=== PATIENT | male | born 1950 | race African-American/Black ===

== ENCOUNTER 2018-03-01 10:26 | Day surgery (SDC) | payer MEDICARE, MEDICAID ==
[~2018-03-01] VITALS: Ht 175.3 cm; Wt 129.3 kg
[~2018-03-01 10:26] MED LIST: AMLO10TA80; ASPRIN; CLON0.2T; FURO40TA5; GABA-529; INSLAN; INSU100V28; LEVVL; LISI-604; METF500T; METO-385; PRAV40TA58; TRAM50TA94
[2018-03-01] MEDS ORDERED: GABA800T97 PO (12:06)
[2018-03-01] MEDS ORDERED: SITA100T11 PO (12:15)
[2018-03-01] MEDS ORDERED: ASPI-986 PO (12:15)
[2018-03-01] MEDS ORDERED: TAMS0.4C31 PO (12:15)
[2018-03-01] MEDS ORDERED: INSU100I13 SQ (12:15)
[2018-03-01] MEDS ORDERED: NITROGLYCERIN 50MCG/ML 10ML VIAL (CATH LAB) IV ONE (12:24)
[2018-03-01] MEDS ORDERED: NICARDIPINE 100MCG/ML 10ML VIAL (CATH LAB) IV ONE (12:24)
[2018-03-01] MEDS ORDERED: HEPARIN SODIUM 1,000 UNIT/1ML VIAL IV ONE (12:24)
[2018-03-01] MEDS ORDERED: IODIXANOL 320MG/ML 100 ML BOTTLE IV ONE (12:39)
[2018-03-01] MEDS ORDERED: LIDOCAINE HCL/PF 1% 10 MG/ML 5ML VIAL ONE (12:39)
[2018-03-01] MEDS ORDERED: MIDAZOLAM HCL 2 MG/2 ML VIAL ONE (13:05)
[2018-03-01] MEDS ORDERED: FENTANYL CITRATE/PF 50MCG/ML 2ML VIAL ONE (13:06)
[2018-03-01] MEDS ORDERED: ONDANSETRON HCL 4MG/2ML VIAL IV PRN (14:30)
== END 2018-03-01 19:15 | disposition home or self-care (01) ==
LOC: CCL 10:26
PROVIDERS: ATTEND Specialist
DX: I25.10 Atherosclerotic heart disease of native coronary artery without angina pectoris (principal); E78.5 Hyperlipidemia, unspecified; I13.10 Hypertensive heart and chronic kidney disease without heart failure, with stage 1 through stage 4 chronic kidney disease, or unspecified chronic kidney disease; E10.22 Type 1 diabetes mellitus with diabetic chronic kidney disease; N18.3 Chronic kidney disease, stage 3 (moderate); I25.2 Old myocardial infarction; N40.0 Benign prostatic hyperplasia without lower urinary tract symptoms; J44.9 Chronic obstructive pulmonary disease, unspecified; Z87.891 Personal history of nicotine dependence; Z79.82 Long term (current) use of aspirin; Z79.4 Long term (current) use of insulin; Z79.899 Other long term (current) drug therapy; Z95.5 Presence of coronary angioplasty implant and graft
CPT/HCPCS: 82962; 93459; 99152; 99153; C1760; C1769; C1887; C1893; J1644; J2250; J3010; J3490; J7030; Q9967

== ENCOUNTER 2018-08-30 06:34 | Inpatient (IN) | payer MEDICARE, MEDICAID ==
[~2018-08-30] VITALS: Ht 175.3 cm; Wt 131.2 kg
[~2018-08-30 06:34] MED LIST changes: +ASPI-986 PO; -ASPRIN; -FURO40TA5; -GABA-529; +GABA800T97 PO; -INSLAN; +INSU100I13 SQ; -INSU100V28; -LEVVL; -METF500T; +SITA100T11 PO; +TAMS0.4C31 PO; -TRAM50TA94
[2018-08-30] MEDS ORDERED: INSU100I28 SQ (07:51)
[2018-08-30] MEDS ORDERED: LIDOCAINE HCL 1% 20ML VIAL (Pyxis) INJ ONE (08:03)
[2018-08-30 08:18] LABS: PARTIAL THROMBOPLASTIN TIME 29.2 sec (23.4-31.0)
[2018-08-30] MEDS ORDERED: IODIXANOL 320MG/ML 100 ML BOTTLE IV ONE (08:38)
[2018-08-30] MEDS ORDERED: FENTANYL CITRATE/PF 50MCG/ML 2ML VIAL ONE (08:40)
[2018-08-30] MEDS ORDERED: MIDAZOLAM HCL 2 MG/2 ML VIAL ONE (08:40)
[2018-08-30] MEDS ORDERED: IOHEXOL-300 100 ML BOTTLE ONE (09:13)
[2018-08-30] MEDS ORDERED: ATROPINE SULFATE 0.1MG/ML 10ML DISP.SYRIN ONE (09:25)
[2018-08-30] MEDS ORDERED: ASPIRIN 325MG TABLET ONE (09:30)
[2018-08-30] MEDS ORDERED: CLOPIDOGREL 75MG TABLET ONE (09:30)
[2018-08-30] MEDS ORDERED: ENALAPRIL 1.25MG/ML VIAL 1ML IV ONE (09:33)
[2018-08-30] MEDS ORDERED: ONDANSETRON HCL 4MG/2ML INJ IV PRN (09:45)
[2018-08-30] MEDS ORDERED: ATROPINE SULFATE 1MG/10ML SYR IV PRN (09:45)
[2018-08-30] MEDS ORDERED: ACETAMINOPHEN 325MG TABLET PO PRN (09:45)
[2018-08-30 11:37] VITALS: BP 200/92
[2018-08-30] MEDS ORDERED: PNEUMOCOCCAL 23-VAL P-SAC VAC 0.5 ML IM ONE (12:00)
[2018-08-30] MEDS ORDERED: AMLODIPINE 10MG TABLET PO ONE (14:30)
[2018-08-30] MEDS ORDERED: NICARDIPINE 100MCG/ML 10ML VIAL (CATH LAB) IV ONE (14:42)
[2018-08-30] MEDS ORDERED: NITROGLYCERIN 50MCG/ML 10ML VIAL (CATH LAB) IV ONE (14:42)
[2018-08-30] MEDS ORDERED: HEPARIN SODIUM 1,000 UNIT/1ML VIAL IV ONE (14:43)
[2018-08-30] MEDS ORDERED: ENALAPRIL 2.5MG/2ML VIAL 2ML IV PRN (16:45)
[2018-08-30] MEDS: CLONIDINE 0.1MG TABLET PO PRN ×2 (17:08→22:34)
[2018-08-30] MEDS ORDERED: DEXTROSE 50% WATER 50ML SYRINGE IV PRN (19:15)
[2018-08-30] MEDS ORDERED: SODIUM CHLORIDE 0.45% 1,000 ML IV SCH (19:30)
[2018-08-30 20:00] VITALS: BP 208/118
[2018-08-30] MEDS: LISINOPRIL 10MG TABLET PO SCH (20:11)
[2018-08-30] MEDS: BLOOD SUGAR DIAGNOSTIC STRIP TEST SCH (20:11)
[2018-08-30] MEDS ORDERED: ZOLPIDEM TARTRATE 5MG TABLET PO PRN (21:00)
[2018-08-30] MEDS ORDERED: MORPHINE SULFATE 10 MG/ML CPJ IV PRN (21:15)
[2018-08-30] MEDS ORDERED: MEDICATION NOT ON FORMULARY EA (Gabapentin 800 MG) PO SCH (21:15)
[2018-08-30] MEDS: GABAPENTIN 400MG CAPSULE PO SCH (21:48)
[2018-08-30] MEDS: INSULIN LISPRO 100 UNITS/ML SUBCUT SCH (21:50)
[2018-08-30 22:01] VITALS: BP 184/109
[2018-08-31] VITALS (8 sets, daily range): BP systolic 169–201; BP diastolic 90–128
[2018-08-31] MEDS: ENALAPRIL 2.5MG/2ML VIAL 2ML IV PRN ×2 (00:25→06:52)
[2018-08-31] MEDS: CLONIDINE 0.1MG TABLET PO PRN ×2 (04:12→12:10)
[2018-08-31] MEDS ORDERED: NITROGLYCERIN OINT 1GM/INCH UDPKT TD SCH ×2 (05:47→12:00)
[2018-08-31] MEDS: BLOOD SUGAR DIAGNOSTIC STRIP TEST SCH ×2 (06:18→11:52)
[2018-08-31 07:21] LABS: BASOPHILS % 0.5 % (0.0-2.0); EOSINOPHILS % 2.5 % (0.0-5.0); HEMATOCRIT. 36.9 % (42.0-52.0); HEMOGLOBIN. 12.6 g/dL (14.0-18.0); LYMPHOCYTES % 21.7 % (20.0-50.0); MEAN CORPUSCULAR HEMOGLOBIN 29.6 pg (28.0-32.0); MEAN PLATELET VOLUME 9.7 fl (7.4-10.4); MONOCYTES % 7.3 % (2.0-8.0); PLATELET 243 x1000/uL (130-400); RED BLOOD CELL COUNT 4.24 mill/uL (4.7-6.1); RED CELL DISTRIBUTION WIDTH 14.5 % (11.6-14.6)
[2018-08-31] MEDS: LISINOPRIL 10MG TABLET PO SCH (08:37)
[2018-08-31] MEDS: GABAPENTIN 400MG CAPSULE PO SCH (08:37)
[2018-08-31] MEDS: INSULIN LISPRO 100 UNITS/ML SUBCUT SCH (08:38)
[2018-08-31] MEDS ORDERED: AMLODIPINE 10MG TABLET PO SCH (09:00)
[2018-08-31] MEDS ORDERED: ASPIRIN 325MG TABLET PO SCH (09:00)
[2018-08-31] MEDS ORDERED: CLOPIDOGREL 75MG TABLET PO SCH (09:00)
== END 2018-08-31 14:03 | disposition home or self-care (01) | DRG 175 ==
LOC: CCL 06:34 → 3WST 06:35
PROVIDERS: ADMIT Specialist; ATTEND Specialist
PROC: B2101ZZ Fluoroscopy of Single Coronary Artery using Low Osmolar Contrast (ICD-10-PCS; principal; 2018-08-30)
PROC: 027034Z Dilation of Coronary Artery, One Artery with Drug-eluting Intraluminal Device, Percutaneous Approach (ICD-10-PCS; 2018-08-30)
PROC: 4A023N7 Measurement of Cardiac Sampling and Pressure, Left Heart, Percutaneous Approach (ICD-10-PCS; 2018-08-30)
DX: T82.855A Stenosis of coronary artery stent, initial encounter (principal); E11.22 Type 2 diabetes mellitus with diabetic chronic kidney disease; E88.81 Metabolic syndrome and other insulin resistance; I25.110 Atherosclerotic heart disease of native coronary artery with unstable angina pectoris; E66.8 Other obesity; E78.5 Hyperlipidemia, unspecified; J44.9 Chronic obstructive pulmonary disease, unspecified; F17.210 Nicotine dependence, cigarettes, uncomplicated; I13.10 Hypertensive heart and chronic kidney disease without heart failure, with stage 1 through stage 4 chronic kidney disease, or unspecified chronic kidney disease; N40.0 Benign prostatic hyperplasia without lower urinary tract symptoms; N18.9 Chronic kidney disease, unspecified; Y83.1 Surgical operation with implant of artificial internal device as the cause of abnormal reaction of the patient, or of later complication, without mention of misadventure at the time of the procedure; Z95.1 Presence of aortocoronary bypass graft; Z79.4 Long term (current) use of insulin; Z68.41 Body mass index [BMI] 40.0-44.9, adult; I25.2 Old myocardial infarction; Z79.899 Other long term (current) drug therapy; Y92.89 Other specified places as the place of occurrence of the external cause
CPT/HCPCS: 36415; 80048; 82962; 85347; 92928; 93005; 93454; C1769; C1874; C1887; C1893; J0461; J1644; J1815; J2250; J3010; J3490; Q9967

== ENCOUNTER 2020-01-21 15:57 | Inpatient (IN) | payer MEDICARE, MEDICAID ==
[~2020-01-21] VITALS: Ht 174 cm; Wt 127.3 kg
[~2020-01-21 15:57] MED LIST changes: +INSU100I28 SQ
[2020-01-21 19:25] LABS: BASOPHILS % 0.9 % (0.0-2.0); EOSINOPHILS % 3.5 % (0.0-5.0); HEMATOCRIT. 37.8 % (42.0-52.0); HEMOGLOBIN. 12.8 g/dL (14.0-18.0); LYMPHOCYTES % 31.9 % (20.0-50.0); MEAN CORPUSCULAR HEMOGLOBIN 30.5 pg (28.0-32.0); MEAN CORPUSCULAR VOLUME 89.9 fL (80.0-94.0); MEAN PLATELET VOLUME 8.8 fl (7.4-10.4); MONOCYTES % 7.6 % (2.0-8.0); NEUTROPHILS % 56.1 % (40.0-76.0); PLATELET 255 x1000/uL (130-400); RED CELL DISTRIBUTION WIDTH 14.6 % (11.6-14.6)
[2020-01-21 19:31] LABS: CHLORIDE 111 mEq/L (98-107)
[2020-01-21] MEDS ORDERED: ASPIRIN 325MG EC TABLET PO ONE (19:45)
[2020-01-21] MEDS ORDERED: SODIUM CHLORIDE 0.9% 500 ML IV NR (20:00)
[2020-01-22] MEDS ORDERED: DOCUSATE SODIUM 100MG CAPSULE PO PRN (02:30)
[2020-01-22] MEDS ORDERED: HYDROCODONE/ACETAMINOPHEN 5/325MG TABLET PO PRN (02:30)
[2020-01-22] MEDS ORDERED: ENOXAPARIN 40MG/0.4ML SYR SUBCUT SCH (02:30)
[2020-01-22] MEDS ORDERED: MAGNESIUM/ALUMINUM HYDROXIDE/SIMETHICONE 30ML UDC PO PRN (02:30)
[2020-01-22] MEDS ORDERED: ACETAMINOPHEN 325MG TABLET PO PRN (02:30)
[2020-01-22] MEDS ORDERED: GUAIFENESIN 200MG/10ML SUGAR FREE UDC PO PRN (02:30)
[2020-01-22] MEDS ORDERED: ONDANSETRON HCL 4MG/2ML INJ IV PRN (02:30)
[2020-01-22] MEDS ORDERED: MORPHINE SULFATE 2 MG/ML CPJ (NOT FOR IM USE) IV PRN (02:30)
[2020-01-22] MEDS: CLONIDINE 0.1MG TABLET PO PRN ×2 (03:46→23:18)
[2020-01-22] MEDS ORDERED: SODIUM CHLORIDE 0.45% 1,000 ML IV ONE (07:45)
[2020-01-22] MEDS ORDERED: HYDRALAZINE 20MG/ML VIAL IV ONE (08:30)
[2020-01-22] MEDS: HYDRALAZINE 20MG/ML VIAL IV PRN ×2 (10:22→19:33)
[2020-01-22] MEDS: ASPIRIN 81MG EC TABLET PO SCH (13:59)
[2020-01-22] MEDS: METOPROLOL TARTRATE 25MG TABLET PO SCH ×2 (13:59→21:00)
[2020-01-22] MEDS: AMLODIPINE 10MG TABLET PO SCH (14:00)
[2020-01-22] MEDS: CLOPIDOGREL 75MG TABLET PO SCH (14:01)
[2020-01-22 16:29] VITALS: BP 187/92
[2020-01-22] MEDS ORDERED: DEXTROSE 50% WATER 50ML SYRINGE IV PRN (17:45)
[2020-01-22] MEDS: TAMSULOSIN HCL 0.4MG SR CAPSULE PO SCH (17:57)
[2020-01-22] MEDS: CLONIDINE 0.1MG TABLET PO SCH (17:57)
[2020-01-22] MEDS: GABAPENTIN 400MG CAPSULE PO SCH (17:57)
[2020-01-22] MEDS ORDERED: ENOXAPARIN 120MG/0.8ML SYR SUBCUT NR (18:00)
[2020-01-22 19:17] LABS: CLARITY URINE CLEAR (CLEAR); COLOR URINE YELLOW (YELLOW); KETONES URINE NEGATIVE (NEGATIVE); LEUKOCYTE ESTERASE URINE NEGATIVE (NEGATIVE); NITRITE URINE NEGATIVE (NEGATIVE); OCCULT BLOOD URINE NEGATIVE (NEGATIVE); PH URINE 6.5 (4.5-8.0); PROTEIN URINE 3+ (NEGATIVE); SPECIFIC GRAVITY URINE 1.016 (1.005-1.030)
[2020-01-22 19:32] VITALS: BP 207/96
[2020-01-22 20:00] VITALS: BP 162/90
[2020-01-22] MEDS ORDERED: ATORVASTATIN CALCIUM 10MG TABLET PO SCH (21:00)
[2020-01-22] MEDS: BLOOD SUGAR DIAGNOSTIC STRIP TEST SCH (21:00)
[2020-01-22] MEDS ORDERED: INSULIN LISPRO 100 UNITS/ML SUBCUT SCH (21:00)
[2020-01-22] MEDS: INSULIN LISPRO 100 UNITS/ML SUBCUT SCH (21:33)
[2020-01-22 22:50] VITALS: BP 186/104
[2020-01-23] VITALS (12 sets, daily range): BP systolic 123–190; BP diastolic 63–112
[2020-01-23] MEDS: CLONIDINE 0.1MG TABLET PO SCH ×3 (00:36→16:10)
[2020-01-23] MEDS: HYDRALAZINE 20MG/ML VIAL IV PRN ×2 (02:12→18:58)
[2020-01-23] MEDS: BLOOD SUGAR DIAGNOSTIC STRIP TEST SCH ×4 (05:57→21:00)
[2020-01-23 06:47] LABS: BASOPHILS % 0.9 % (0.0-2.0); EOSINOPHILS % 3.4 % (0.0-5.0); HEMATOCRIT. 34.9 % (42.0-52.0); HEMOGLOBIN. 11.9 g/dL (14.0-18.0); LYMPHOCYTES % 22.5 % (20.0-50.0); MEAN CORPUSCULAR HEMOGLOBIN 31.1 pg (28.0-32.0); MEAN PLATELET VOLUME 9.2 fl (7.4-10.4); MONOCYTES % 8.4 % (2.0-8.0); NEUTROPHILS % 64.8 % (40.0-76.0); PLATELET 234 x1000/uL (130-400); RED BLOOD CELL COUNT 3.84 mill/uL (4.7-6.1); RED CELL DISTRIBUTION WIDTH 14.8 % (11.6-14.6)
[2020-01-23] MEDS: INSULIN LISPRO 100 UNITS/ML SUBCUT SCH ×4 (07:20→21:02)
[2020-01-23] MEDS: ASPIRIN 81MG EC TABLET PO SCH (08:32)
[2020-01-23] MEDS: METOPROLOL TARTRATE 25MG TABLET PO SCH ×2 (08:33→21:02)
[2020-01-23] MEDS: TAMSULOSIN HCL 0.4MG SR CAPSULE PO SCH ×2 (08:33→16:17)
[2020-01-23] MEDS: GABAPENTIN 400MG CAPSULE PO SCH (08:33)
[2020-01-23] MEDS: AMLODIPINE 10MG TABLET PO SCH (08:34)
[2020-01-23] MEDS: CLOPIDOGREL 75MG TABLET PO SCH (08:34)
[2020-01-23] MEDS: SODIUM CHLORIDE 0.45% 1,000 ML IV SCH ×2 (09:50→21:04)
[2020-01-23] MEDS ORDERED: HEPARIN SODIUM 1,000 UNIT/1ML VIAL IV ONE (10:06)
[2020-01-23] MEDS ORDERED: NITROGLYCERIN 50MCG/ML 10ML VIAL (CATH LAB) IV ONE (10:06)
[2020-01-23] MEDS ORDERED: NICARDIPINE 100MCG/ML 10ML VIAL (CATH LAB) IV ONE (10:06)
[2020-01-23 11:02] LABS: CHLORIDE 106 mEq/L (98-107)
[2020-01-23 11:10] LABS: LDL CHOLESTEROL 107 mg/dL (5-100); PHOSPHORUS 2.9 mg/dL (2.5-4.9)
[2020-01-23 11:12] LABS: HDL CHOLESTEROL 27 mg/dL (40-59)
[2020-01-23] MEDS ORDERED: LIDOCAINE HCL 1% 20ML VIAL (Pyxis) INJ ONE (13:20)
[2020-01-23] MEDS ORDERED: MIDAZOLAM HCL 2 MG/2 ML VIAL ONE (13:21)
[2020-01-23] MEDS ORDERED: FENTANYL CITRATE/PF 50MCG/ML 2ML VIAL ONE (13:21)
[2020-01-23] MEDS ORDERED: IODIXANOL 320MG/ML 100 ML BOTTLE IV ONE (13:21)
[2020-01-23] MEDS ORDERED: HYDRALAZINE 20MG/ML VIAL ONE (14:20)
[2020-01-23] MEDS ORDERED: ACETAMINOPHEN 325MG TABLET PO PRN (14:30)
[2020-01-23] MEDS ORDERED: ONDANSETRON HCL 4MG/2ML INJ IV PRN (14:30)
[2020-01-23] MEDS ORDERED: ATROPINE SULFATE 1MG/10ML SYR IV PRN (14:30)
[2020-01-23] MEDS ORDERED: ATORVASTATIN CALCIUM 10MG TABLET PO SCH (21:00)
[2020-01-24] VITALS (8 sets, daily range): BP systolic 129–178; BP diastolic 86–105
[2020-01-24] MEDS: CLONIDINE 0.1MG TABLET PO SCH ×2 (00:12→09:09)
[2020-01-24] MEDS: BLOOD SUGAR DIAGNOSTIC STRIP TEST SCH ×2 (06:16→12:49)
[2020-01-24] MEDS: SODIUM CHLORIDE 0.45% 1,000 ML IV SCH (06:16)
[2020-01-24] MEDS: HYDRALAZINE 20MG/ML VIAL IV PRN (06:23)
[2020-01-24] MEDS: GABAPENTIN 400MG CAPSULE PO SCH (09:08)
[2020-01-24] MEDS: INSULIN LISPRO 100 UNITS/ML SUBCUT SCH ×2 (09:08→12:48)
[2020-01-24] MEDS: ASPIRIN 81MG EC TABLET PO SCH (09:09)
[2020-01-24] MEDS: METOPROLOL TARTRATE 25MG TABLET PO SCH (09:10)
[2020-01-24] MEDS: CLOPIDOGREL 75MG TABLET PO SCH (09:10)
[2020-01-24] MEDS: AMLODIPINE 10MG TABLET PO SCH (09:10)
[2020-01-24] MEDS: TAMSULOSIN HCL 0.4MG SR CAPSULE PO SCH (09:11)
== END 2020-01-24 13:51 | disposition home or self-care (01) | DRG 191 ==
LOC: ER 15:57 → 3WST 20:58 → ENRESERV 01-22 14:46 → CMPBEDREQ 01-22 15:56
PROVIDERS: ADMIT Hospitalist; ATTEND Hospitalist
PROC: B2111ZZ Fluoroscopy of Multiple Coronary Arteries using Low Osmolar Contrast (ICD-10-PCS; principal; 2020-01-23)
PROC: B2131ZZ Fluoroscopy of Multiple Coronary Artery Bypass Grafts using Low Osmolar Contrast (ICD-10-PCS; 2020-01-23)
DX: I25.110 Atherosclerotic heart disease of native coronary artery with unstable angina pectoris (principal); N17.9 Acute kidney failure, unspecified; E11.22 Type 2 diabetes mellitus with diabetic chronic kidney disease; I24.9 Acute ischemic heart disease, unspecified; Z68.41 Body mass index [BMI] 40.0-44.9, adult; I13.11 Hypertensive heart and chronic kidney disease without heart failure, with stage 5 chronic kidney disease, or end stage renal disease; N18.6 End stage renal disease; E78.00 Pure hypercholesterolemia, unspecified; E66.09 Other obesity due to excess calories; E78.5 Hyperlipidemia, unspecified; Z20.828 Contact with and (suspected) exposure to other viral communicable diseases; Z53.20 Procedure and treatment not carried out because of patient's decision for unspecified reasons; G47.33 Obstructive sleep apnea (adult) (pediatric); I25.2 Old myocardial infarction; Z99.2 Dependence on renal dialysis; Z95.1 Presence of aortocoronary bypass graft; Z82.3 Family history of stroke; Z79.4 Long term (current) use of insulin; Z82.49 Family history of ischemic heart disease and other diseases of the circulatory system; Z83.3 Family history of diabetes mellitus; Z87.891 Personal history of nicotine dependence; Z95.5 Presence of coronary angioplasty implant and graft
CPT/HCPCS: 36415; 71045; 76770; 80053; 80061; 81003; 82962; 83735; 83880; 84100; 84484; 85025; 93005; 93306; 93459; 93970; 99285; C1769; C1887; C1893; J0360; J1644; J1650; J1815; J2250; J3010; J3490; Q9967; U0003

== ENCOUNTER 2020-08-12 08:11 | Inpatient (IN) | payer MEDICARE, MEDICAID ==
[2020-08-12] VITALS (12 sets, daily range): BP systolic 138–169; BP diastolic 72–84
[~2020-08-12] VITALS: Ht 175.3 cm; Wt 127.0 kg
[2020-08-12 09:50] LABS: BASOPHILS % 0.7 % (0.0-2.0); EOSINOPHILS % 2.3 % (0.0-5.0); HEMATOCRIT. 30.8 % (42.0-52.0); HEMOGLOBIN. 10.2 g/dL (14.0-18.0); LYMPHOCYTES % 17.9 % (20.0-50.0); MEAN CORPUSCULAR HEMOGLOBIN 30.4 pg (28.0-32.0); MEAN CORPUSCULAR VOLUME 91.8 fL (80.0-94.0); MEAN PLATELET VOLUME 9.4 fl (7.4-10.4); MONOCYTES % 7.8 % (2.0-8.0); NEUTROPHILS % 71.3 % (40.0-76.0); PLATELET 224 x1000/uL (130-400); RED BLOOD CELL COUNT 3.36 mill/uL (4.7-6.1); RED CELL DISTRIBUTION WIDTH 13.9 % (11.6-14.6)
[2020-08-12 09:51] LABS: CHLORIDE 105 mEq/L (98-107)
[2020-08-12] MEDS ORDERED: SODIUM POLYSTYRENE SULFONATE 15 G/60 ML BOT PO NR (11:30)
[2020-08-12] MEDS: FUROSEMIDE 100MG/10ML VIAL IVP SCH ×2 (12:01→12:10)
[2020-08-12 12:46] LABS: BG BASE EXCESS -6.7 mmol/L (-2.0-2.0); BG CARBOXYHEMOGLOBIN 0.9 % (0.5-1.5); BG FRACTION INSPIRED OXYGEN 21; BG HCO3 ACT 18.4 mmol/L (22.0-26.0); BG METHEMOGLOBIN 0.3 % (0.0-1.5); BG OXYHEMOGLOBIN 95.8 % (94.0-97.0); BG PCO2 35.5 mmHg (35.0-45.0); BG PH 7.333 (7.350-7.450); BG PO2 104.8 mmHg (75.0-100.0); BG SAMPLE SITE RIGHT RADIAL; BG TOTAL HEMOGLOBIN 11.5 g/dL (12.0-18.0); BG VENT MODE ROOM AIR
[2020-08-12] MEDS ORDERED: CEFAZOLIN 1000MG PREMIX 50 ML IV NR (13:15)
[2020-08-12] MEDS ORDERED: ACETAMINOPHEN 325MG TABLET PO PRN (13:15)
[2020-08-12] MEDS ORDERED: ASPIRIN 81MG TABLET PO NR (13:15)
[2020-08-12] MEDS ORDERED: ONDANSETRON HCL 4MG/2ML INJ IV PRN (13:15)
[2020-08-12 13:20] LABS: PROTHROMBIN TIME 10.6 sec (9.6-11.0)
[2020-08-12] MEDS: INSULIN LISPRO 100 UNITS/ML SUBCUT SCH ×3 (13:20→20:58)
[2020-08-12] MEDS ORDERED: CEFAZOLIN 1000MG PREMIX 50 ML IV ONE (13:22)
[2020-08-12] MEDS ORDERED: DEXTROSE 50% WATER 50ML SYRINGE IV PRN (13:30)
[2020-08-12] MEDS ORDERED: SODIUM BICARBONATE 4% (2.4MEQ) 5ML VIAL IV ONE (13:40)
[2020-08-12] MEDS ORDERED: LIDOCAINE HCL 1% 20ML VIAL (Pyxis) INJ ONE (13:41)
[2020-08-12] MEDS ORDERED: FENTANYL CITRATE/PF 50MCG/ML 2ML VIAL IV ONE (14:43)
[2020-08-12] MEDS ORDERED: FENTANYL CITRATE/PF 50MCG/ML 2ML VIAL ONE (14:43)
[2020-08-12] MEDS ORDERED: LIDOCAINE HCL/EPINEPHRINE 1%-EPI 1:100,000 20 ML VIAL ONE (14:52)
[2020-08-12] MEDS: AMLODIPINE 10MG TABLET PO SCH (16:05)
[2020-08-12] MEDS: ENOXAPARIN 40MG/0.4ML SYR SUBCUT SCH (16:06)
[2020-08-12] MEDS: BLOOD SUGAR DIAGNOSTIC STRIP TEST SCH ×2 (17:37→20:57)
[2020-08-12] MEDS: METOPROLOL TARTRATE 25MG TABLET PO SCH (20:57)
[2020-08-12] MEDS: ATORVASTATIN CALCIUM 40MG TABLET PO SCH (21:01)
[2020-08-12] MEDS ORDERED: INSULIN GLARGINE UD 100 UNITS/ML SYR SUBCUT SCH (22:00)
[2020-08-12] MEDS: HYDRALAZINE HCL 50MG TABLET PO SCH (22:00)
[2020-08-13] VITALS (7 sets, daily range): BP systolic 144–187; BP diastolic 60–102
[2020-08-13] MEDS: HYDRALAZINE HCL 50MG TABLET PO SCH ×4 (00:17→23:58)
[2020-08-13] MEDS: BLOOD SUGAR DIAGNOSTIC STRIP TEST SCH ×4 (06:38→21:55)
[2020-08-13] MEDS: INSULIN LISPRO 100 UNITS/ML SUBCUT SCH ×5 (06:39→21:00)
[2020-08-13 07:01] LABS: BASOPHILS % 0.4 % (0.0-2.0); EOSINOPHILS % 2.9 % (0.0-5.0); HEMATOCRIT. 32.2 % (42.0-52.0); HEMOGLOBIN. 11.1 g/dL (14.0-18.0); LYMPHOCYTES % 15.5 % (20.0-50.0); MEAN CORPUSCULAR VOLUME 89.9 fL (80.0-94.0); MEAN PLATELET VOLUME 9.7 fl (7.4-10.4); NEUTROPHILS % 74.2 % (40.0-76.0); PLATELET 229 x1000/uL (130-400); RED BLOOD CELL COUNT 3.58 mill/uL (4.7-6.1); RED CELL DISTRIBUTION WIDTH 13.8 % (11.6-14.6)
[2020-08-13 07:07] LABS: HEPATITIS B SURFACE AB < 3.1 mIU/mL
[2020-08-13 07:11] LABS: PHOSPHORUS 3.6 mg/dL (2.5-4.9)
[2020-08-13 07:17] LABS: HEPATITIS B SURFACE ANTIGEN NEGATIVE
[2020-08-13] MEDS: FUROSEMIDE 100MG/10ML VIAL IVP SCH ×2 (09:04→21:54)
[2020-08-13] MEDS: ASPIRIN 81MG TABLET PO SCH (09:04)
[2020-08-13] MEDS: ENOXAPARIN 40MG/0.4ML SYR SUBCUT SCH (09:06)
[2020-08-13] MEDS: METOPROLOL TARTRATE 25MG TABLET PO SCH ×2 (10:46→21:54)
[2020-08-13] MEDS: AMLODIPINE 10MG TABLET PO SCH (10:47)
[2020-08-13] MEDS: CLONIDINE 0.1MG TABLET PO SCH ×2 (12:00→21:53)
[2020-08-13] MEDS ORDERED: PNEUMOCOCCAL 23-VAL P-SAC VAC 0.5 ML IM ONE (12:00)
[2020-08-13] MEDS ORDERED: GABAPENTIN 300MG CAPSULE PO SCH (21:00)
[2020-08-13] MEDS: ATORVASTATIN CALCIUM 40MG TABLET PO SCH (21:54)
[2020-08-13] MEDS: INSULIN GLARGINE UD 100 UNITS/ML SYR SUBCUT SCH (21:55)
[2020-08-14 00:06] VITALS: BP 161/82
[2020-08-14 04:30] VITALS: BP 162/64
[2020-08-14 06:48] LABS: BASOPHILS % 0.4 % (0.0-2.0); EOSINOPHILS % 2.4 % (0.0-5.0); HEMATOCRIT. 34.4 % (42.0-52.0); HEMOGLOBIN. 11.8 g/dL (14.0-18.0); LYMPHOCYTES % 22.9 % (20.0-50.0); MEAN CORPUSCULAR HEMOGLOBIN 30.8 pg (28.0-32.0); MEAN CORPUSCULAR VOLUME 89.9 fL (80.0-94.0); MEAN PLATELET VOLUME 9.2 fl (7.4-10.4); MONOCYTES % 10.3 % (2.0-8.0); PLATELET 236 x1000/uL (130-400); RED BLOOD CELL COUNT 3.83 mill/uL (4.7-6.1)
[2020-08-14] MEDS: HYDRALAZINE HCL 50MG TABLET PO SCH ×2 (06:51→13:47)
[2020-08-14] MEDS: BLOOD SUGAR DIAGNOSTIC STRIP TEST SCH ×3 (06:51→17:26)
[2020-08-14] MEDS: INSULIN LISPRO 100 UNITS/ML SUBCUT SCH ×3 (06:52→17:45)
[2020-08-14 07:18] LABS: PHOSPHORUS 4.3 mg/dL (2.5-4.9)
[2020-08-14 08:00] VITALS: BP 176/86
[2020-08-14] MEDS: INSULIN GLARGINE UD 100 UNITS/ML SYR SUBCUT SCH (10:14)
[2020-08-14] MEDS: ASPIRIN 81MG TABLET PO SCH (10:15)
[2020-08-14] MEDS: AMLODIPINE 10MG TABLET PO SCH (10:15)
[2020-08-14] MEDS: CLONIDINE 0.1MG TABLET PO SCH (10:15)
[2020-08-14] MEDS: FUROSEMIDE 100MG/10ML VIAL IVP SCH (10:16)
[2020-08-14] MEDS: METOPROLOL TARTRATE 25MG TABLET PO SCH (10:16)
[2020-08-14] MEDS: ENOXAPARIN 40MG/0.4ML SYR SUBCUT SCH (10:16)
[2020-08-14 12:00] VITALS: BP 176/96
[2020-08-14 16:00] VITALS: BP 156/104
[2020-08-14 18:30] VITALS: BP 156/104
[2020-08-14] MEDS ORDERED: CLONIDINE 0.2MG TABLET PO SCH (21:00)
[2020-08-14] MEDS ORDERED: INSULIN GLARGINE UD 100 UNITS/ML SYR SUBCUT SCH (22:00)
== END 2020-08-14 19:18 | disposition home or self-care (01) | DRG 470 ==
LOC: ER 08:11 → 5WST 11:56 → EDBEDREQTM 12:00 → EDBEDREQ 12:00 → ENRESERV 20:11 → 8WST 08-13 17:36
PROVIDERS: ADMIT Internal Medicine; ATTEND Internal Medicine
PROC: 5A1D70Z Performance of Urinary Filtration, Intermittent, Less than 6 Hours Per Day (ICD-10-PCS; principal; 2020-08-12)
PROC: 0JH63XZ Insertion of Tunneled Vascular Access Device into Chest Subcutaneous Tissue and Fascia, Percutaneous Approach (ICD-10-PCS; 2020-08-12)
PROC: 02HV33Z Insertion of Infusion Device into Superior Vena Cava, Percutaneous Approach (ICD-10-PCS; 2020-08-12)
PROC: B5181ZA Fluoroscopy of Superior Vena Cava using Low Osmolar Contrast, Guidance (ICD-10-PCS; 2020-08-12)
PROC: B548ZZA Ultrasonography of Superior Vena Cava, Guidance (ICD-10-PCS; 2020-08-12)
DX: I12.0 Hypertensive chronic kidney disease with stage 5 chronic kidney disease or end stage renal disease (principal); I24.8 Other forms of acute ischemic heart disease; N18.6 End stage renal disease; E87.5 Hyperkalemia; D63.8 Anemia in other chronic diseases classified elsewhere; E11.22 Type 2 diabetes mellitus with diabetic chronic kidney disease; E66.01 Morbid (severe) obesity due to excess calories; E78.5 Hyperlipidemia, unspecified; G47.33 Obstructive sleep apnea (adult) (pediatric); I25.10 Atherosclerotic heart disease of native coronary artery without angina pectoris; N40.0 Benign prostatic hyperplasia without lower urinary tract symptoms; Z20.828 Contact with and (suspected) exposure to other viral communicable diseases; I25.2 Old myocardial infarction; Z79.4 Long term (current) use of insulin; Z82.49 Family history of ischemic heart disease and other diseases of the circulatory system; Z68.41 Body mass index [BMI] 40.0-44.9, adult; Z79.899 Other long term (current) drug therapy; Z79.82 Long term (current) use of aspirin; N17.9 Acute kidney failure, unspecified; M94.0 Chondrocostal junction syndrome [Tietze]
CPT/HCPCS: 36415; 36558; 36600; 71045; 76937; 77001; 80048; 80053; 82375; 82805; 82962; 83735; 83880; 84100; 84484; 85025; 86705; 86706; 86803; 87340; 87426; 90732; 93005; 93306; 99152; 99153; 99285; C1750; C1769; J0690; J1642; J1650; J1815; J1940; J3010; J3490; G0500

== ENCOUNTER 2020-11-06 18:14 | Inpatient (IN) | payer MEDICARE, MEDICAID ==
[~2020-11-06] VITALS: Ht 182.9 cm; Wt 115.4 kg
[~2020-11-06 18:14] MED LIST changes: -LISI-604; +LISI20TA31
[2020-11-06] MEDS ORDERED: HYDRALAZINE 20MG/ML VIAL IV ONE (19:00)
[2020-11-06] MEDS ORDERED: AMLODIPINE 10MG TABLET PO ONE (19:00)
[2020-11-06 20:17] LABS: BASOPHILS % 0.6 % (0.0-2.0); EOSINOPHILS % 3.4 % (0.0-5.0); HEMATOCRIT. 34.6 % (42.0-52.0); HEMOGLOBIN. 11.6 g/dL (14.0-18.0); LYMPHOCYTES % 29.9 % (20.0-50.0); MEAN CORPUSCULAR VOLUME 89.7 fL (80.0-94.0); MEAN PLATELET VOLUME 8.3 fl (7.4-10.4); MONOCYTES % 9.5 % (2.0-8.0); NEUTROPHILS % 56.6 % (40.0-76.0); PLATELET 275 x1000/uL (130-400); RED BLOOD CELL COUNT 3.86 mill/uL (4.7-6.1); RED CELL DISTRIBUTION WIDTH 14.1 % (11.6-14.6)
[2020-11-06 20:26] LABS: CHLORIDE 103 mEq/L (98-107)
[2020-11-06] MEDS ORDERED: DOXAZOSIN MESYLATE 2MG TABLET PO SCH (21:00)
[2020-11-06] MEDS: ATORVASTATIN CALCIUM 40MG TABLET PO SCH (21:06)
[2020-11-06] MEDS: METOPROLOL TARTRATE 50MG TABLET PO SCH (21:06)
[2020-11-06] MEDS: RANOLAZINE 500 MG TAB.SR.12H PO SCH (21:06)
[2020-11-06] MEDS: CLONIDINE 0.1MG TABLET PO SCH (21:07)
[2020-11-06] MEDS: GABAPENTIN 300MG CAPSULE PO SCH (21:07)
[2020-11-06 23:44] VITALS: BP 157/88
[2020-11-07] VITALS: BP 152/89
[2020-11-07] MEDS: HYDRALAZINE HCL 50MG TABLET PO SCH ×4 (00:27→21:57)
[2020-11-07] MEDS: CLONIDINE 0.1MG TABLET PO SCH ×3 (05:12→21:58)
[2020-11-07] MEDS ORDERED: DEXTROSE 50% WATER 50ML SYRINGE IV PRN (07:15)
[2020-11-07] MEDS: BLOOD SUGAR DIAGNOSTIC STRIP TEST SCH ×4 (07:34→20:23)
[2020-11-07] MEDS: INSULIN LISPRO 100 UNITS/ML SUBCUT SCH ×4 (07:47→20:23)
[2020-11-07] MEDS: CLONIDINE 0.2MG TABLET PO PRN (07:47)
[2020-11-07 08:00] VITALS: BP 179/85
[2020-11-07] MEDS ORDERED: TAMSULOSIN HCL 0.4MG SR CAPSULE PO SCH (09:00)
[2020-11-07] MEDS: METOPROLOL TARTRATE 50MG TABLET PO SCH ×2 (09:13→20:34)
[2020-11-07] MEDS: ISOSORBIDE MONONITRATE 60MG TABLET SR 24HR PO SCH (09:14)
[2020-11-07] MEDS: LISINOPRIL 20MG TABLET PO SCH (09:14)
[2020-11-07] MEDS: ASPIRIN 325MG EC TABLET PO SCH (09:14)
[2020-11-07] MEDS: AMLODIPINE 10MG TABLET PO SCH (09:15)
[2020-11-07 12:00] VITALS: BP 161/89
[2020-11-07 12:01] LABS: BASOPHILS % 0.8 % (0.0-2.0); EOSINOPHILS % 3.7 % (0.0-5.0); HEMATOCRIT. 34.5 % (42.0-52.0); HEMOGLOBIN. 11.5 g/dL (14.0-18.0); LYMPHOCYTES % 25.8 % (20.0-50.0); MEAN CORPUSCULAR HEMOGLOBIN 29.7 pg (28.0-32.0); MEAN PLATELET VOLUME 8.2 fl (7.4-10.4); MONOCYTES % 9.4 % (2.0-8.0); NEUTROPHILS % 60.3 % (40.0-76.0); PLATELET 263 x1000/uL (130-400); RED BLOOD CELL COUNT 3.87 mill/uL (4.7-6.1); RED CELL DISTRIBUTION WIDTH 14.1 % (11.6-14.6)
[2020-11-07] MEDS: OMEPRAZOLE 20MG CAPSULE EXTENDED RELEASE PO SCH (12:55)
[2020-11-07] MEDS: LINAGLIPTIN 5MG TABLET PO SCH (12:57)
[2020-11-07] MEDS: RANOLAZINE 500 MG TAB.SR.12H PO SCH ×2 (14:30→20:34)
[2020-11-07] MEDS: INSULIN GLARGINE UD 100 UNITS/ML SYR SUBCUT SCH (14:31)
[2020-11-07 16:00] VITALS: BP 153/75
[2020-11-07] MEDS ORDERED: METOPROLOL TARTRATE 50MG TABLET PO SCH (17:00)
[2020-11-07 17:07] LABS: CREATINE KINASE MB FRACTION 2.5 ng/mL (0.5-3.6)
[2020-11-07 20:00] VITALS: BP 172/82
[2020-11-07] MEDS: ENOXAPARIN 40MG/0.4ML SYR SUBCUT SCH (20:34)
[2020-11-07] MEDS: ATORVASTATIN CALCIUM 40MG TABLET PO SCH (20:34)
[2020-11-07] MEDS: DOXAZOSIN MESYLATE 4MG TABLET PO SCH (20:34)
[2020-11-07] MEDS: GABAPENTIN 300MG CAPSULE PO SCH (20:35)
[2020-11-07] MEDS: MORPHINE SULFATE 2 MG/ML CPJ (NOT FOR IM USE) IV PRN (21:58)
[2020-11-08] VITALS: BP 112/75
[2020-11-08 04:00] VITALS: BP 147/76
[2020-11-08] MEDS: HYDRALAZINE HCL 50MG TABLET PO SCH ×3 (06:36→21:39)
[2020-11-08] MEDS: CLONIDINE 0.1MG TABLET PO SCH ×3 (06:36→21:39)
[2020-11-08] MEDS: OMEPRAZOLE 20MG CAPSULE EXTENDED RELEASE PO SCH (06:36)
[2020-11-08] MEDS: BLOOD SUGAR DIAGNOSTIC STRIP TEST SCH ×4 (06:37→20:57)
[2020-11-08] MEDS: INSULIN LISPRO 100 UNITS/ML SUBCUT SCH ×4 (07:40→20:57)
[2020-11-08 08:00] VITALS: BP 167/83
[2020-11-08 08:47] LABS: BASOPHILS % 0.8 % (0.0-2.0); EOSINOPHILS % 3.9 % (0.0-5.0); HEMATOCRIT. 34.6 % (42.0-52.0); HEMOGLOBIN. 11.6 g/dL (14.0-18.0); LYMPHOCYTES % 19.9 % (20.0-50.0); MEAN CORPUSCULAR VOLUME 89.4 fL (80.0-94.0); MEAN PLATELET VOLUME 8.7 fl (7.4-10.4); MONOCYTES % 8.8 % (2.0-8.0); NEUTROPHILS % 66.6 % (40.0-76.0); PLATELET 255 x1000/uL (130-400); RED BLOOD CELL COUNT 3.87 mill/uL (4.7-6.1)
[2020-11-08] MEDS: LISINOPRIL 20MG TABLET PO SCH (09:17)
[2020-11-08] MEDS: RANOLAZINE 500 MG TAB.SR.12H PO SCH ×2 (09:17→20:56)
[2020-11-08] MEDS: LINAGLIPTIN 5MG TABLET PO SCH (09:17)
[2020-11-08] MEDS: ISOSORBIDE MONONITRATE 60MG TABLET SR 24HR PO SCH (09:17)
[2020-11-08] MEDS: METOPROLOL TARTRATE 50MG TABLET PO SCH ×2 (09:17→20:56)
[2020-11-08] MEDS: ASPIRIN 325MG EC TABLET PO SCH (09:17)
[2020-11-08] MEDS: AMLODIPINE 10MG TABLET PO SCH (09:18)
[2020-11-08 09:25] LABS: PHOSPHORUS 3.4 mg/dL (2.5-4.9)
[2020-11-08] MEDS: INSULIN GLARGINE UD 100 UNITS/ML SYR SUBCUT SCH (10:28)
[2020-11-08 12:00] VITALS: BP 162/89
[2020-11-08] MEDS ORDERED: REGADENOSON 0.4 MG/5 ML IV ONE (15:00)
[2020-11-08 16:00] VITALS: BP 141/77
[2020-11-08 20:00] VITALS: BP 159/78
[2020-11-08] MEDS: ENOXAPARIN 40MG/0.4ML SYR SUBCUT SCH (20:55)
[2020-11-08] MEDS: ATORVASTATIN CALCIUM 40MG TABLET PO SCH (20:56)
[2020-11-08] MEDS: DOXAZOSIN MESYLATE 4MG TABLET PO SCH (20:56)
[2020-11-08] MEDS: GABAPENTIN 300MG CAPSULE PO SCH (20:56)
[2020-11-08] MEDS: MORPHINE SULFATE 2 MG/ML CPJ (NOT FOR IM USE) IV PRN (21:40)
[2020-11-09] VITALS (7 sets, daily range): BP systolic 117–173; BP diastolic 68–86
[2020-11-09] MEDS: CLONIDINE 0.2MG TABLET PO PRN (00:33)
[2020-11-09] MEDS ORDERED: NITROGLYCERIN 0.4MG TABLET SL SL PRN (00:45)
[2020-11-09] MEDS: HYDRALAZINE HCL 50MG TABLET PO SCH ×3 (06:00→21:36)
[2020-11-09] MEDS: CLONIDINE 0.1MG TABLET PO SCH ×3 (06:00→21:38)
[2020-11-09] MEDS: BLOOD SUGAR DIAGNOSTIC STRIP TEST SCH ×4 (06:14→21:39)
[2020-11-09] MEDS: OMEPRAZOLE 20MG CAPSULE EXTENDED RELEASE PO SCH (06:14)
[2020-11-09] MEDS: INSULIN LISPRO 100 UNITS/ML SUBCUT SCH ×4 (07:40→21:38)
[2020-11-09 08:24] LABS: BASOPHILS % 0.6 % (0.0-2.0); EOSINOPHILS % 3.1 % (0.0-5.0); HEMATOCRIT. 33.2 % (42.0-52.0); HEMOGLOBIN. 10.9 g/dL (14.0-18.0); LYMPHOCYTES % 26.4 % (20.0-50.0); MEAN CORPUSCULAR HEMOGLOBIN 29.4 pg (28.0-32.0); MEAN CORPUSCULAR VOLUME 89.9 fL (80.0-94.0); MEAN PLATELET VOLUME 8.8 fl (7.4-10.4); MONOCYTES % 6.4 % (2.0-8.0); NEUTROPHILS % 63.5 % (40.0-76.0); PLATELET 266 x1000/uL (130-400); RED BLOOD CELL COUNT 3.69 mill/uL (4.7-6.1); RED CELL DISTRIBUTION WIDTH 14.1 % (11.6-14.6)
[2020-11-09 08:45] LABS: PHOSPHORUS 3.8 mg/dL (2.5-4.9)
[2020-11-09] MEDS ORDERED: REGADENOSON 0.4 MG/5 ML IV ONE (09:39)
[2020-11-09] MEDS: ASPIRIN 325MG EC TABLET PO SCH (13:32)
[2020-11-09] MEDS: METOPROLOL TARTRATE 50MG TABLET PO SCH ×2 (13:32→21:36)
[2020-11-09] MEDS: AMLODIPINE 10MG TABLET PO SCH (13:32)
[2020-11-09] MEDS: LISINOPRIL 20MG TABLET PO SCH (13:33)
[2020-11-09] MEDS: ISOSORBIDE MONONITRATE 60MG TABLET SR 24HR PO SCH (13:33)
[2020-11-09] MEDS: LINAGLIPTIN 5MG TABLET PO SCH (13:33)
[2020-11-09] MEDS: RANOLAZINE 500 MG TAB.SR.12H PO SCH ×2 (13:33→21:36)
[2020-11-09] MEDS: INSULIN GLARGINE UD 100 UNITS/ML SYR SUBCUT SCH (13:39)
[2020-11-09] MEDS: ENOXAPARIN 40MG/0.4ML SYR SUBCUT SCH (21:35)
[2020-11-09] MEDS: GABAPENTIN 300MG CAPSULE PO SCH (21:36)
[2020-11-09] MEDS: ATORVASTATIN CALCIUM 40MG TABLET PO SCH (21:36)
[2020-11-09] MEDS: DOXAZOSIN MESYLATE 4MG TABLET PO SCH (21:37)
[2020-11-10] VITALS: BP 152/74
[2020-11-10 03:48] VITALS: BP 158/87
[2020-11-10 05:00] VITALS: BP 180/88
[2020-11-10] MEDS: HYDRALAZINE HCL 50MG TABLET PO SCH ×2 (05:01→13:38)
[2020-11-10] MEDS: CLONIDINE 0.1MG TABLET PO SCH ×2 (05:02→13:38)
[2020-11-10] MEDS: BLOOD SUGAR DIAGNOSTIC STRIP TEST SCH ×2 (05:56→13:07)
[2020-11-10] MEDS: OMEPRAZOLE 20MG CAPSULE EXTENDED RELEASE PO SCH (06:24)
[2020-11-10] MEDS: INSULIN LISPRO 100 UNITS/ML SUBCUT SCH ×2 (06:25→12:40)
[2020-11-10 07:49] LABS: BASOPHILS % 0.6 % (0.0-2.0); EOSINOPHILS % 3.4 % (0.0-5.0); HEMATOCRIT. 33.6 % (42.0-52.0); HEMOGLOBIN. 11.4 g/dL (14.0-18.0); LYMPHOCYTES % 25.8 % (20.0-50.0); MEAN CORPUSCULAR HEMOGLOBIN 30.6 pg (28.0-32.0); MEAN CORPUSCULAR VOLUME 90.3 fL (80.0-94.0); MEAN PLATELET VOLUME 9.6 fl (7.4-10.4); MONOCYTES % 8.7 % (2.0-8.0); NEUTROPHILS % 61.5 % (40.0-76.0); PLATELET 148 x1000/uL (130-400); RED BLOOD CELL COUNT 3.72 mill/uL (4.7-6.1)
[2020-11-10 08:00] VITALS: BP 144/75
[2020-11-10 08:11] LABS: PHOSPHORUS 3.5 mg/dL (2.5-4.9)
[2020-11-10] MEDS: ASPIRIN 325MG EC TABLET PO SCH (08:13)
[2020-11-10] MEDS: LINAGLIPTIN 5MG TABLET PO SCH (08:13)
[2020-11-10] MEDS: RANOLAZINE 500 MG TAB.SR.12H PO SCH (08:13)
[2020-11-10] MEDS: ISOSORBIDE MONONITRATE 60MG TABLET SR 24HR PO SCH (08:13)
[2020-11-10] MEDS: LISINOPRIL 20MG TABLET PO SCH (08:14)
[2020-11-10] MEDS: AMLODIPINE 10MG TABLET PO SCH (08:14)
[2020-11-10] MEDS: METOPROLOL TARTRATE 50MG TABLET PO SCH (08:14)
[2020-11-10] MEDS: INSULIN GLARGINE UD 100 UNITS/ML SYR SUBCUT SCH (10:54)
[2020-11-10 13:31] VITALS: BP 129/99
[2020-11-10] MEDS ORDERED: POLYETHYLENE GLYCOL 3350 (17GM) 1 DOSE PACK PO SCH (14:00)
[2020-11-10 14:52] VITALS: BP 129/99
== END 2020-11-10 15:35 | disposition home or self-care (01) | DRG 198 ==
LOC: ER 18:14 → 8WST 19:53 → ENRESERV 21:27
PROVIDERS: ADMIT Internal Medicine; ATTEND Internal Medicine
PROC: 5A1D70Z Performance of Urinary Filtration, Intermittent, Less than 6 Hours Per Day (ICD-10-PCS; principal; 2020-11-09)
PROC: 5A1D70Z Performance of Urinary Filtration, Intermittent, Less than 6 Hours Per Day (ICD-10-PCS; 2020-11-10)
DX: I25.119 Atherosclerotic heart disease of native coronary artery with unspecified angina pectoris (principal); I24.8 Other forms of acute ischemic heart disease; R07.9 Chest pain, unspecified; N18.6 End stage renal disease; I50.9 Heart failure, unspecified; E11.22 Type 2 diabetes mellitus with diabetic chronic kidney disease; E78.5 Hyperlipidemia, unspecified; E78.00 Pure hypercholesterolemia, unspecified; E11.40 Type 2 diabetes mellitus with diabetic neuropathy, unspecified; I13.2 Hypertensive heart and chronic kidney disease with heart failure and with stage 5 chronic kidney disease, or end stage renal disease; K21.9 Gastro-esophageal reflux disease without esophagitis; D64.9 Anemia, unspecified; G89.29 Other chronic pain; M54.5 Low back pain; E21.3 Hyperparathyroidism, unspecified; K59.00 Constipation, unspecified; Z20.822 Contact with and (suspected) exposure to COVID-19; Z95.1 Presence of aortocoronary bypass graft; I25.2 Old myocardial infarction; Z99.2 Dependence on renal dialysis; Z79.4 Long term (current) use of insulin; Z79.899 Other long term (current) drug therapy
CPT/HCPCS: 36415; 71045; 78452; 80048; 80053; 82550; 82553; 82962; 83036; 83735; 83880; 84100; 84484; 85025; 87426; 93005; 93017; 93306; 99291; A9500; J0360; J1650; J1815; J2270; J2785

== ENCOUNTER → 2020-12-09 | Day surgery (SDC) | payer MEDICARE, MEDICAID ==
[~2020-12-09] VITALS: Ht 175.3 cm; Wt 127.0 kg
[~2020-12-09] MED LIST changes: +FENTANYL CITRATE/PF 50MCG/ML 2ML VIAL ONE; +FENTANYL CITRATE/PF 50MCG/ML 5ML VIAL ONE; +HEPARIN SODIUM 1,000 UNIT/1ML VIAL IV ONE; +IODIXANOL 320MG/ML 100 ML BOTTLE IV ONE; +LIDOCAINE HCL 1% 20ML VIAL (Pyxis) INJ ONE; +MIDAZOLAM HCL 2 MG/2 ML VIAL ONE; +MIDAZOLAM HCL 5 MG/5 ML VIAL ONE; +MORPHINE SULFATE 2 MG/ML CPJ (NOT FOR IM USE) IV NR; +MORPHINE SULFATE 2 MG/ML CPJ (NOT FOR IM USE) IV ONE; +NICARDIPINE 100MCG/ML 10ML VIAL (CATH LAB) IV ONE; +NITROGLYCERIN 50MCG/ML 10ML VIAL (CATH LAB) IV ONE; +ONDANSETRON HCL 4MG/2ML INJ IV PRN
[2020-12-09 16:10] VITALS: BP 160/80
== END | disposition home or self-care (01) ==
LOC: CCL 08:44
PROVIDERS: ATTEND Specialist
DX: I25.10 Atherosclerotic heart disease of native coronary artery without angina pectoris (principal); R07.9 Chest pain, unspecified; R94.39 Abnormal result of other cardiovascular function study; E11.9 Type 2 diabetes mellitus without complications; E66.09 Other obesity due to excess calories; E78.5 Hyperlipidemia, unspecified; I11.0 Hypertensive heart disease with heart failure; I50.9 Heart failure, unspecified; G47.33 Obstructive sleep apnea (adult) (pediatric); I25.5 Ischemic cardiomyopathy; N40.0 Benign prostatic hyperplasia without lower urinary tract symptoms; F17.210 Nicotine dependence, cigarettes, uncomplicated; Z79.4 Long term (current) use of insulin; Z79.82 Long term (current) use of aspirin; Z79.899 Other long term (current) drug therapy; Z95.1 Presence of aortocoronary bypass graft; Z95.5 Presence of coronary angioplasty implant and graft; Z98.890 Other specified postprocedural states; Z82.49 Family history of ischemic heart disease and other diseases of the circulatory system; Z83.3 Family history of diabetes mellitus
CPT/HCPCS: 93459; C1760; C1769; C1887; C1893; J1644; J2250; J2270; J3010; J3490; Q9967

== ENCOUNTER → 2020-12-09 | Outpatient (CLI) | payer MEDICARE, MEDICAID ==
[~2020-12-09] MED LIST changes: -FENTANYL CITRATE/PF 50MCG/ML 2ML VIAL ONE; -FENTANYL CITRATE/PF 50MCG/ML 5ML VIAL ONE; -HEPARIN SODIUM 1,000 UNIT/1ML VIAL IV ONE; -IODIXANOL 320MG/ML 100 ML BOTTLE IV ONE; -LIDOCAINE HCL 1% 20ML VIAL (Pyxis) INJ ONE; -MIDAZOLAM HCL 2 MG/2 ML VIAL ONE; -MIDAZOLAM HCL 5 MG/5 ML VIAL ONE; -MORPHINE SULFATE 2 MG/ML CPJ (NOT FOR IM USE) IV NR; -MORPHINE SULFATE 2 MG/ML CPJ (NOT FOR IM USE) IV ONE; -NICARDIPINE 100MCG/ML 10ML VIAL (CATH LAB) IV ONE; -NITROGLYCERIN 50MCG/ML 10ML VIAL (CATH LAB) IV ONE; -ONDANSETRON HCL 4MG/2ML INJ IV PRN
== END | disposition home or self-care (01) ==
LOC: LAB 08:56
PROVIDERS: ATTEND Specialist
DX: Z20.822 Contact with and (suspected) exposure to COVID-19 (principal)
CPT/HCPCS: 87426

== ENCOUNTER 2021-08-02 05:01 | Inpatient (IN) | payer MEDICARE, MEDICAID ==
[~2021-08-02] VITALS: Ht 175.3 cm; Wt 97.5 kg
[2021-08-02] VITALS (13 sets, daily range): BP systolic 151–198; BP diastolic 74–121
[~2021-08-02 05:01] MED LIST changes: +HYDR-4001 MT
[2021-08-02 05:46] LABS: BASOPHILS % 0.9 % (0.0-2.0); EOSINOPHILS % 4.2 % (0.0-5.0); HEMATOCRIT. 40.2 % (42.0-52.0); HEMOGLOBIN. 13.4 g/dL (14.0-18.0); MEAN CORPUSCULAR HEMOGLOBIN 29.3 pg (28.0-32.0); MEAN PLATELET VOLUME 8.7 fl (7.4-10.4); MONOCYTES % 7.8 % (2.0-8.0); NEUTROPHILS % 64.1 % (40.0-76.0); PLATELET 172 x1000/uL (130-400); RED BLOOD CELL COUNT 4.57 mill/uL (4.7-6.1)
[2021-08-02 05:51] LABS: CHLORIDE 110 mEq/L (98-107)
[2021-08-02] MEDS ORDERED: DEXTROSE 50% WATER 50ML SYRINGE IV PRN (07:30)
[2021-08-02] MEDS ORDERED: NITROGLYCERIN 0.4MG TABLET SL SL PRN (07:30)
[2021-08-02] MEDS ORDERED: MAGNESIUM/ALUMINUM HYDROXIDE/SIMETHICONE 30ML UDC PO PRN (07:30)
[2021-08-02] MEDS ORDERED: IPRATROPIUM/ALBUTEROL 0.5-3(2.5)MG/3ML NEB NEB PRN (07:30)
[2021-08-02] MEDS ORDERED: ONDANSETRON HCL 4MG/2ML INJ IV PRN (07:30)
[2021-08-02] MEDS ORDERED: GUAIFENESIN 200MG/10ML SUGAR FREE UDC PO PRN (07:30)
[2021-08-02] MEDS ORDERED: DOCUSATE SODIUM 100MG CAPSULE PO PRN (07:30)
[2021-08-02] MEDS ORDERED: TRAMADOL 50MG TABLET PO PRN (07:30)
[2021-08-02] MEDS ORDERED: ACETAMINOPHEN 325MG TABLET PO PRN ×3 (07:30→14:45)
[2021-08-02] MEDS ORDERED: PHENYLEPHRINE 100MCG/ML 10ML VIAL (CATH LAB) IV ONE (08:00)
[2021-08-02] MEDS ORDERED: NALOXONE HCL 0.4MG/ML VIAL IV PRN (08:00)
[2021-08-02] MEDS ORDERED: ENOXAPARIN 40MG/0.4ML SYR SUBCUT SCH (08:00)
[2021-08-02] MEDS ORDERED: NITROGLYCERIN 50MCG/ML 10ML VIAL (CATH LAB) IV ONE (08:00)
[2021-08-02] MEDS ORDERED: HEPARIN SODIUM 1,000 UNIT/1ML VIAL IV ONE (08:00)
[2021-08-02] MEDS: INSULIN LISPRO 100 UNITS/ML SUBCUT SCH ×4 (08:20→21:11)
[2021-08-02] MEDS: BLOOD SUGAR DIAGNOSTIC STRIP TEST SCH ×4 (08:53→21:11)
[2021-08-02] MEDS ORDERED: ASPIRIN 325MG EC TABLET PO SCH (09:00)
[2021-08-02] MEDS: METOPROLOL TARTRATE 25MG TABLET PO SCH ×2 (10:05→10:08)
[2021-08-02] MEDS: AMLODIPINE 10MG TABLET PO SCH (10:08)
[2021-08-02] MEDS: FAMOTIDINE 20MG TABLET PO SCH (10:09)
[2021-08-02] MEDS: SEVELAMER CARBONATE 800 MG TABLET PO SCH ×3 (10:14→17:21)
[2021-08-02] MEDS: CLONIDINE 0.1MG TABLET PO PRN ×3 (11:46→23:57)
[2021-08-02] MEDS ORDERED: MIDAZOLAM HCL 2 MG/2 ML VIAL ONE ×2 (13:10→14:12)
[2021-08-02] MEDS ORDERED: FENTANYL CITRATE/PF 50MCG/ML 2ML VIAL ONE (13:10)
[2021-08-02] MEDS ORDERED: HEPARIN 1000 UNITS/ML 10ML ONE ×2 (13:11→14:12)
[2021-08-02] MEDS ORDERED: MIDAZOLAM HCL 5 MG/5 ML VIAL ONE (13:11)
[2021-08-02] MEDS ORDERED: FENTANYL CITRATE/PF 50MCG/ML 5ML VIAL ONE (13:11)
[2021-08-02] MEDS ORDERED: IODIXANOL 320MG/ML 100 ML BOTTLE IV ONE ×2 (13:12→14:12)
[2021-08-02] MEDS ORDERED: IOHEXOL-300 100 ML BOTTLE ONE (13:12)
[2021-08-02] MEDS ORDERED: LIDOCAINE HCL 1% 20ML VIAL (Pyxis) INJ ONE (13:12)
[2021-08-02] MEDS ORDERED: ATROPINE SULFATE 1MG/10ML SYR IV PRN (14:45)
[2021-08-02] MEDS ORDERED: CLOPIDOGREL 75MG TABLET ONE (14:47)
[2021-08-02] MEDS ORDERED: ASPIRIN 325MG EC TABLET PO ONE (14:48)
[2021-08-02] MEDS ORDERED: HYDR100T26 PO (15:02)
[2021-08-02] MEDS ORDERED: DOCU240C26 MT (15:02)
[2021-08-02] MEDS ORDERED: CLON-457 PO (15:02)
[2021-08-02] MEDS ORDERED: ISOS20TA57 PO (15:02)
[2021-08-02] MEDS ORDERED: FOLI0.8T23 MT (15:02)
[2021-08-02] MEDS ORDERED: CLOP-31 PO (15:02)
[2021-08-02] MEDS ORDERED: HYDRALAZINE 20MG/ML VIAL ONE (15:09)
[2021-08-02] MEDS: ONDANSETRON HCL 4MG/2ML INJ IV PRN ×2 (15:55→23:57)
[2021-08-02 16:56] LABS: CREATINE KINASE MB FRACTION 4.7 ng/mL (0.5-3.6)
[2021-08-02 17:12] LABS: HEPATITIS B SURFACE ANTIGEN NEGATIVE
[2021-08-02] MEDS ORDERED: ATORVASTATIN CALCIUM 10MG TABLET PO SCH (21:00)
[2021-08-02] MEDS ORDERED: ZOLPIDEM TARTRATE 5MG TABLET PO PRN (21:00)
[2021-08-02] MEDS ORDERED: INSULIN GLARGINE UD 100 UNITS/ML SYR SUBCUT SCH (22:00)
[2021-08-03] VITALS: BP 153/38
[2021-08-03 02:00] VITALS: BP 149/72
[2021-08-03 03:31] VITALS: BP 158/66
[2021-08-03] MEDS: BLOOD SUGAR DIAGNOSTIC STRIP TEST SCH (05:48)
[2021-08-03 06:00] VITALS: BP 168/81
[2021-08-03] MEDS: INSULIN LISPRO 100 UNITS/ML SUBCUT SCH (07:20)
[2021-08-03 07:48] LABS: CHLORIDE 110 mEq/L (98-107)
[2021-08-03 07:56] LABS: LDL CHOLESTEROL 97 mg/dL (5-100)
[2021-08-03 07:57] LABS: CREATINE KINASE 61 IU/L (39-308); CREATINE KINASE MB FRACTION 3.1 ng/mL (0.5-3.6); HDL CHOLESTEROL 31 mg/dL (40-59)
[2021-08-03 08:00] VITALS: BP 145/63
[2021-08-03 08:01] LABS: BASOPHILS % 0.4 % (0.0-2.0); HEMATOCRIT. 37.7 % (42.0-52.0); HEMOGLOBIN. 12.3 g/dL (14.0-18.0); LYMPHOCYTES % 24.7 % (20.0-50.0); MEAN CORPUSCULAR HEMOGLOBIN 29.4 pg (28.0-32.0); MEAN CORPUSCULAR VOLUME 89.8 fL (80.0-94.0); MEAN PLATELET VOLUME 8.9 fl (7.4-10.4); MONOCYTES % 9.2 % (2.0-8.0); NEUTROPHILS % 61.7 % (40.0-76.0); PLATELET 186 x1000/uL (130-400); RED CELL DISTRIBUTION WIDTH 14.8 % (11.6-14.6)
[2021-08-03] MEDS: SEVELAMER CARBONATE 800 MG TABLET PO SCH (08:13)
[2021-08-03] MEDS: AMLODIPINE 10MG TABLET PO SCH (08:14)
[2021-08-03] MEDS: METOPROLOL TARTRATE 25MG TABLET PO SCH (08:14)
[2021-08-03] MEDS: FAMOTIDINE 20MG TABLET PO SCH (08:15)
[2021-08-03] MEDS ORDERED: ASPIRIN 81MG EC TABLET PO SCH (09:00)
[2021-08-03] MEDS ORDERED: CLOPIDOGREL 75MG TABLET PO SCH (09:00)
[2021-08-03] MEDS ORDERED: ASPIRIN 325MG TABLET PO SCH (09:00)
[2021-08-03 10:19] VITALS: BP 145/63
== END 2021-08-03 11:25 | disposition home or self-care (01) | DRG 175 ==
LOC: ER 05:01 → 7EST 06:16 → EDBEDREQ 06:26 → ENRESERV 07:13 → 3WST 15:11
PROVIDERS: ADMIT Internal Medicine; ATTEND Internal Medicine
PROC: 4A023N7 Measurement of Cardiac Sampling and Pressure, Left Heart, Percutaneous Approach (ICD-10-PCS; principal; 2021-08-02)
PROC: 027034Z Dilation of Coronary Artery, One Artery with Drug-eluting Intraluminal Device, Percutaneous Approach (ICD-10-PCS; 2021-08-02)
PROC: B211YZZ Fluoroscopy of Multiple Coronary Arteries using Other Contrast (ICD-10-PCS; 2021-08-02)
PROC: B212YZZ Fluoroscopy of Single Coronary Artery Bypass Graft using Other Contrast (ICD-10-PCS; 2021-08-02)
PROC: B218YZZ Fluoroscopy of Left Internal Mammary Bypass Graft using Other Contrast (ICD-10-PCS; 2021-08-02)
PROC: 5A1D70Z Performance of Urinary Filtration, Intermittent, Less than 6 Hours Per Day (ICD-10-PCS; 2021-08-02)
DX: I13.2 Hypertensive heart and chronic kidney disease with heart failure and with stage 5 chronic kidney disease, or end stage renal disease (principal); I42.9 Cardiomyopathy, unspecified; E44.1 Mild protein-calorie malnutrition; N18.6 End stage renal disease; D63.8 Anemia in other chronic diseases classified elsewhere; I24.9 Acute ischemic heart disease, unspecified; E11.22 Type 2 diabetes mellitus with diabetic chronic kidney disease; I25.110 Atherosclerotic heart disease of native coronary artery with unstable angina pectoris; I50.33 Acute on chronic diastolic (congestive) heart failure; E11.65 Type 2 diabetes mellitus with hyperglycemia; E78.5 Hyperlipidemia, unspecified; E78.00 Pure hypercholesterolemia, unspecified; G47.33 Obstructive sleep apnea (adult) (pediatric); E11.51 Type 2 diabetes mellitus with diabetic peripheral angiopathy without gangrene; N40.0 Benign prostatic hyperplasia without lower urinary tract symptoms; E11.40 Type 2 diabetes mellitus with diabetic neuropathy, unspecified; Z79.02 Long term (current) use of antithrombotics/antiplatelets; I25.2 Old myocardial infarction; Z68.33 Body mass index [BMI] 33.0-33.9, adult; Z79.4 Long term (current) use of insulin; Z79.82 Long term (current) use of aspirin; Z89.511 Acquired absence of right leg below knee; Z89.611 Acquired absence of right leg above knee; Z95.1 Presence of aortocoronary bypass graft; Z95.5 Presence of coronary angioplasty implant and graft; Z99.2 Dependence on renal dialysis
CPT/HCPCS: 36415; 71045; 80048; 80053; 80061; 82550; 82553; 82962; 83036; 83735; 83880; 84100; 84443; 84484; 85025; 85347; 86705; 86709; 86803; 87340; 92928; 93005; 93306; 93455; 93970; 99285; C1760; C1769; C1874; C1887; C1893; J0360; J1644; J1650; J1815; J2250; J2370; J2405; J3010; J3490; Q9967